=== PATIENT | male | born 1950 | race Asian ===

== ENCOUNTER 2018-12-04 19:04 | Inpatient (IN) | payer OTHER, MEDICARE ==
[~2018-12-04] VITALS: Ht 177.8 cm; Wt 78.9 kg
[2018-12-04] MEDS ORDERED: SODIUM CHLORIDE FLUSH 10ML SYR IVF ONE (19:30)
[2018-12-04] MEDS ORDERED: ACETAMINOPHEN 500 MG TABLET PO ONE (19:30)
[2018-12-04] MEDS ORDERED: IBUPROFEN 200 MG TABLET ONE (19:31)
[2018-12-04 19:43] LABS: BASOPHILS # (AUTO) 0.23 x10^3/uL (0-0.1); BASOPHILS % (AUTO) 1 % (0-1); EOSINOPHILS # (AUTO) 0.05 x10^3/uL (0-0.4); EOSINOPHILS % (AUTO) 0 % (1-7); LYMPHOCYTES # (AUTO) 1.22 x10^3/uL (1-3.4); LYMPHOCYTES % (AUTO) 8 % (22-44); MD NO; MEAN CORPUSCULAR HEMOGLOBIN 30.7 pg (27.5-34.5); MEAN CORPUSCULAR HGB CONC 34.7 g/dL (33.2-36.2); MEAN CORPUSCULAR VOLUME 88.5 fL (81-97); MEAN PLATELET VOLUME 7.5 fL (7.4-10.4); MONOCYTES # (AUTO) 1.01 x10^3/uL (0.2-0.8); MONOCYTES % (AUTO) 6 % (2-9); NEUTROPHILS # (AUTO) 13.31 x10^3/uL (1.8-6.8); NEUTROPHILS % (AUTO) 84 % (42-75); PLATELET COUNT 377 x10^3/uL (130-400); RED BLOOD COUNT 4.63 x10^6/uL (4.38-5.82); RED CELL DISTRIBUTION WIDTH 13.2 % (9.4-14.8)
--- NOTE | 2018-12-04 19:48 | NUR ---
THIS PT ARRIVES FROM HOME AFTER BEING ILL FOR 2 WEEKS. PT REPORTS THAT HE HAS HAD PRODUCTIVE COUGH AND FEVERS AT HOME. PT REPORTS THAT HE HAS CP WITH COUGH. PT ON ARRIVAL IS DIAPHORETIC WITH CONGESTION. PT REPORTS NO N/V/D AT THIS TIME OR BLACK STOOLS. PT CONNECTED TO ALL MONITORS AND CALL LIGHT IN REACH. PT FOUND TO BE HYPOXIC AND NEED O2, 2LNC GIVEN TO PT AT THIS TIME.
[2018-12-04 19:49] LABS: ALANINE AMINOTRANSFERASE 123 U/L (12-78); ANION GAP 8 mmol/L (5-15); CALCIUM 9.5 mg/dL (8.5-10.1); CHLORIDE 102 mmol/L (98-107)
[2018-12-04 19:54] LABS: ALKALINE PHOSPHATASE 217 U/L (45-117); BILIRUBIN,TOTAL 0.7 mg/dL (0.2-1.0); CREATININE 0.91 mg/dL (0.7-1.3); TOTAL PROTEIN 8.2 g/dL (6.4-8.2); TROPONIN I < 0.015 ng/mL (0.000-0.045)
[2018-12-04 20:00] LABS: RAPID INFLUENZA A Negative (Negative); RAPID INFLUENZA B Negative (Negative)
[2018-12-04] MEDS ORDERED: IBUPROFEN 200 MG TABLET PO ONE (20:00)
[2018-12-04] MEDS ORDERED: ALBUTEROL/IPRATROPIUM 2.5MG/0.5MG, 3 ML NPPB ONE (20:30)
[2018-12-04] MEDS ORDERED: SODIUM CHLORIDE 0.9% 1,000ML IVBOLUS ONE (20:30)
--- NOTE | 2018-12-04 20:35 | NUR ---
PT FAILED ROOM AIR CHALLENGE, PT IN 79% ON ROOM AIR.
[2018-12-04] MEDS ORDERED: CEFTRIAXONE PMX 1GM/50ML 50 ML IVPB ONE (21:30)
[2018-12-04] MEDS ORDERED: SODIUM CHLORIDE 0.9% 1,000 ML IV ONE (21:31)
[2018-12-04] MEDS ORDERED: CEFTRIAXONE PMX 1GM/50ML 50 ML ONE (21:41)
--- NOTE | 2018-12-04 21:49 | NUR ---
PT STARTED ON ABX AND PIV MAINTENCE STARTED.
[2018-12-04] MEDS: SODIUM CHLORIDE 0.9% 1,000 ML IV SCH (21:55)
[2018-12-04] MEDS ORDERED: GUAIFENESIN/DM 200-20MG, 10ML UDC PO PRN (22:00)
[2018-12-04] MEDS ORDERED: POLYETHYLENE GLYCOL 17 GM PACKET PO PRN (22:00)
[2018-12-04] MEDS ORDERED: SODIUM CHLORIDE FLUSH 10ML SYR IVF PRN (22:00)
[2018-12-04] MEDS ORDERED: CEFTRIAXONE PMX 1GM/50ML 50 ML IV SCH (22:00)
[2018-12-04] MEDS ORDERED: BISACODYL 10 MG SUPP PR PRN (22:00)
[2018-12-04] MEDS ORDERED: ONDANSETRON ODT 4 MG PO PRN (22:00)
--- NOTE | 2018-12-04 22:04 | NUR ---
EPORT TO OFE ARRIAGA.
[2018-12-04 22:30] LABS: HEMOGLOBIN A1C 10.2 % (4.2-6.3)
[2018-12-04 22:34] VITALS: BP 109/69
[2018-12-04 22:36] VITALS: BP 109/69
[2018-12-04] MEDS: HEPARIN 5,000 UNITS/ML, 1ML SQ SCH (23:00)
[2018-12-04] MEDS: DOXYCYCLINE 100 MG in DEXTROSE 5% 250 ML IV SCH (23:26)
[2018-12-04] MEDS ORDERED: ALBUTEROL SULFATE 2.5 MG/3 ML NPPB PRN (23:30)
[2018-12-05 01:43] VITALS: BP 112/66
[2018-12-05] MEDS: SODIUM CHLORIDE 0.9% 1,000 ML IV SCH ×3 (05:25→23:22)
[2018-12-05] MEDS: HEPARIN 5,000 UNITS/ML, 1ML SQ SCH ×3 (05:31→21:05)
[2018-12-05 06:46] LABS: BASOPHILS # (AUTO) 0.08 x10^3/uL (0-0.1); BASOPHILS % (AUTO) 1 % (0-1); EOSINOPHILS # (AUTO) 0.18 x10^3/uL (0-0.4); EOSINOPHILS % (AUTO) 1 % (1-7); LYMPHOCYTES # (AUTO) 1.14 x10^3/uL (1-3.4); LYMPHOCYTES % (AUTO) 9 % (22-44); MD NO; MEAN CORPUSCULAR HEMOGLOBIN 30.7 pg (27.5-34.5); MEAN CORPUSCULAR HGB CONC 34.2 g/dL (33.2-36.2); MEAN CORPUSCULAR VOLUME 89.9 fL (81-97); MEAN PLATELET VOLUME 7.3 fL (7.4-10.4); MONOCYTES # (AUTO) 0.75 x10^3/uL (0.2-0.8); MONOCYTES % (AUTO) 6 % (2-9); NEUTROPHILS # (AUTO) 11.14 x10^3/uL (1.8-6.8); NEUTROPHILS % (AUTO) 84 % (42-75); PLATELET COUNT 342 x10^3/uL (130-400); RED BLOOD COUNT 4.18 x10^6/uL (4.38-5.82); RED CELL DISTRIBUTION WIDTH 13.4 % (9.4-14.8)
[2018-12-05 06:57] LABS: ALBUMIN 2.4 g/dL (3.4-5.0); ANION GAP 6 mmol/L (5-15); CALCIUM 8.4 mg/dL (8.5-10.1); CHLORIDE 108 mmol/L (98-107)
[2018-12-05 07:01] LABS: ALANINE AMINOTRANSFERASE 89 U/L (12-78); ALKALINE PHOSPHATASE 177 U/L (45-117); BILIRUBIN,TOTAL 0.5 mg/dL (0.2-1.0); CREATININE 0.66 mg/dL (0.7-1.3); TOTAL PROTEIN 7.1 g/dL (6.4-8.2)
[2018-12-05 08:00] VITALS: BP 115/70
[2018-12-05] MEDS: SENNA/DOCUSATE TABLET PO SCH (09:00)
[2018-12-05] MEDS: INSULIN LISPRO 100 UNITS/ML, PEN SQ-INSULIN SCH ×4 (09:29→21:04)
[2018-12-05] MEDS: metFORMIN 500 MG TABLET PO SCH ×2 (09:29→17:24)
[2018-12-05] MEDS: DOXYCYCLINE 100 MG in DEXTROSE 5% 250 ML IV SCH ×2 (09:30→22:07)
[2018-12-05] MEDS ORDERED: VANCOMYCIN PER PHARMACY MC PRN (13:00)
[2018-12-05] MEDS ORDERED: PHARMACOKINETIC CONSULTATION MC ONE (13:30)
[2018-12-05] MEDS ORDERED: PHARMACOKINETIC MONITORING MC PRN (13:30)
[2018-12-05 14:00] VITALS: BP 120/75
[2018-12-05] MEDS: VANCOMYCIN 1,500 MG in SODIUM CHLORIDE 0.9% 250 ML IV SCH (14:52)
[2018-12-05] MEDS: PIPERACILLIN/TAZO/PMX 4.5GM 100 ML IV SCH ×2 (17:21→23:22)
[2018-12-05 20:35] VITALS: BP 113/68
[2018-12-06] MEDS ORDERED: METF10007 PO (02:00)
[2018-12-06] MEDS ORDERED: ATOR-2 PO (02:04)
[2018-12-06 02:57] VITALS: BP 126/80
[2018-12-06] MEDS: PIPERACILLIN/TAZO/PMX 4.5GM 100 ML IV SCH ×4 (04:57→23:48)
[2018-12-06] MEDS: ACETAMINOPHEN 325 MG TABLET PO PRN (04:57)
[2018-12-06] MEDS: HEPARIN 5,000 UNITS/ML, 1ML SQ SCH ×3 (06:18→23:49)
[2018-12-06 06:24] VITALS: BP 129/80
[2018-12-06 07:04] LABS: BASOPHILS # (AUTO) 0.06 x10^3/uL (0-0.1); BASOPHILS % (AUTO) 1 % (0-1); EOSINOPHILS # (AUTO) 0.37 x10^3/uL (0-0.4); EOSINOPHILS % (AUTO) 3 % (1-7); LYMPHOCYTES # (AUTO) 1.35 x10^3/uL (1-3.4); LYMPHOCYTES % (AUTO) 12 % (22-44); MD NO; MEAN CORPUSCULAR HEMOGLOBIN 30.7 pg (27.5-34.5); MEAN CORPUSCULAR HGB CONC 34.2 g/dL (33.2-36.2); MEAN CORPUSCULAR VOLUME 89.7 fL (81-97); MEAN PLATELET VOLUME 7.3 fL (7.4-10.4); MONOCYTES # (AUTO) 0.59 x10^3/uL (0.2-0.8); MONOCYTES % (AUTO) 5 % (2-9); NEUTROPHILS # (AUTO) 9.11 x10^3/uL (1.8-6.8); NEUTROPHILS % (AUTO) 79 % (42-75); PLATELET COUNT 369 x10^3/uL (130-400); RED BLOOD COUNT 4.32 x10^6/uL (4.38-5.82); RED CELL DISTRIBUTION WIDTH 13.4 % (9.4-14.8)
[2018-12-06 07:14] LABS: ALBUMIN 2.5 g/dL (3.4-5.0); ANION GAP 7 mmol/L (5-15); CALCIUM 8.6 mg/dL (8.5-10.1); CHLORIDE 107 mmol/L (98-107)
[2018-12-06 07:20] LABS: ALANINE AMINOTRANSFERASE 77 U/L (12-78); ALKALINE PHOSPHATASE 191 U/L (45-117); BILIRUBIN,TOTAL 0.8 mg/dL (0.2-1.0); CREATININE 0.81 mg/dL (0.7-1.3); TOTAL PROTEIN 7.3 g/dL (6.4-8.2)
[2018-12-06] MEDS: INSULIN LISPRO 100 UNITS/ML, PEN SQ-INSULIN SCH ×4 (08:03→21:51)
[2018-12-06] MEDS: metFORMIN 500 MG TABLET PO SCH ×2 (08:03→17:05)
[2018-12-06] MEDS: SENNA/DOCUSATE TABLET PO SCH (09:40)
[2018-12-06] MEDS: SODIUM CHLORIDE 0.9% 1,000 ML IV SCH ×2 (09:40→17:05)
[2018-12-06] MEDS: DOXYCYCLINE 100 MG in DEXTROSE 5% 250 ML IV SCH ×2 (09:40→21:44)
[2018-12-06 13:51] VITALS: BP 115/72
[2018-12-06] MEDS: VANCOMYCIN 1,500 MG in SODIUM CHLORIDE 0.9% 250 ML IV SCH (15:36)
[2018-12-06 19:41] VITALS: BP 112/68
[2018-12-07 02:38] VITALS: BP 130/79
[2018-12-07] MEDS: SODIUM CHLORIDE 0.9% 1,000 ML IV SCH ×2 (03:43→11:00)
[2018-12-07] MEDS: PIPERACILLIN/TAZO/PMX 4.5GM 100 ML IV SCH ×3 (06:31→17:22)
[2018-12-07 06:43] LABS: BASOPHILS # (AUTO) 0.05 x10^3/uL (0-0.1); BASOPHILS % (AUTO) 1 % (0-1); EOSINOPHILS % (AUTO) 5 % (1-7); LYMPHOCYTES # (AUTO) 1.56 x10^3/uL (1-3.4); LYMPHOCYTES % (AUTO) 15 % (22-44); MD NO; MEAN CORPUSCULAR HEMOGLOBIN 30.8 pg (27.5-34.5); MEAN CORPUSCULAR VOLUME 90.7 fL (81-97); MEAN PLATELET VOLUME 7.3 fL (7.4-10.4); MONOCYTES # (AUTO) 0.48 x10^3/uL (0.2-0.8); MONOCYTES % (AUTO) 5 % (2-9); NEUTROPHILS # (AUTO) 7.81 x10^3/uL (1.8-6.8); NEUTROPHILS % (AUTO) 75 % (42-75); PLATELET COUNT 429 x10^3/uL (130-400); RED BLOOD COUNT 4.25 x10^6/uL (4.38-5.82); RED CELL DISTRIBUTION WIDTH 13.3 % (9.4-14.8)
[2018-12-07] MEDS: INSULIN LISPRO 100 UNITS/ML, PEN SQ-INSULIN SCH ×4 (07:00→21:45)
[2018-12-07] MEDS: metFORMIN 500 MG TABLET PO SCH ×2 (08:00→17:21)
[2018-12-07] MEDS: SENNA/DOCUSATE TABLET PO SCH (08:43)
[2018-12-07] MEDS: HEPARIN 5,000 UNITS/ML, 1ML SQ SCH ×2 (08:43→17:21)
[2018-12-07 08:49] VITALS: BP 133/84
[2018-12-07 13:41] VITALS: BP 131/82
[2018-12-07 21:06] VITALS: BP 125/79
[2018-12-08] MEDS: PIPERACILLIN/TAZO/PMX 4.5GM 100 ML IV SCH ×4 (00:46→17:38)
[2018-12-08] MEDS: HEPARIN 5,000 UNITS/ML, 1ML SQ SCH ×3 (00:46→16:32)
[2018-12-08] MEDS: SODIUM CHLORIDE 0.9% 1,000 ML IV SCH (00:46)
[2018-12-08 03:03] VITALS: BP 148/80
[2018-12-08 05:56] LABS: BASOPHILS # (AUTO) 0.03 x10^3/uL (0-0.1); BASOPHILS % (AUTO) 0 % (0-1); EOSINOPHILS # (AUTO) 0.31 x10^3/uL (0-0.4); EOSINOPHILS % (AUTO) 3 % (1-7); LYMPHOCYTES # (AUTO) 1.47 x10^3/uL (1-3.4); LYMPHOCYTES % (AUTO) 16 % (22-44); MD NO; MEAN CORPUSCULAR HEMOGLOBIN 30.2 pg (27.5-34.5); MEAN CORPUSCULAR HGB CONC 33.8 g/dL (33.2-36.2); MEAN CORPUSCULAR VOLUME 89.3 fL (81-97); MONOCYTES # (AUTO) 0.49 x10^3/uL (0.2-0.8); MONOCYTES % (AUTO) 5 % (2-9); NEUTROPHILS # (AUTO) 7.07 x10^3/uL (1.8-6.8); NEUTROPHILS % (AUTO) 75 % (42-75); PLATELET COUNT 486 x10^3/uL (130-400); RED BLOOD COUNT 4.19 x10^6/uL (4.38-5.82); RED CELL DISTRIBUTION WIDTH 13.4 % (9.4-14.8)
[2018-12-08] MEDS: INSULIN LISPRO 100 UNITS/ML, PEN SQ-INSULIN SCH ×4 (07:00→20:41)
[2018-12-08] MEDS: metFORMIN 500 MG TABLET PO SCH ×2 (08:05→16:32)
[2018-12-08] MEDS: SENNA/DOCUSATE TABLET PO SCH (08:05)
[2018-12-08] MEDS: GUAIFENESIN 200 MG TABLET PO SCH ×4 (08:10→20:40)
[2018-12-08 08:13] VITALS: BP 137/84
[2018-12-08 13:37] VITALS: BP 121/74
[2018-12-08] MEDS: ACETAMINOPHEN 325 MG TABLET PO PRN (13:43)
[2018-12-08 19:41] VITALS: BP 132/76
[2018-12-09 00:29] VITALS: BP 136/84
[2018-12-09] MEDS: PIPERACILLIN/TAZO/PMX 4.5GM 100 ML IV SCH ×4 (00:37→19:07)
[2018-12-09] MEDS: HEPARIN 5,000 UNITS/ML, 1ML SQ SCH (00:37)
[2018-12-09 05:56] LABS: BASOPHILS # (AUTO) 0.03 x10^3/uL (0-0.1); BASOPHILS % (AUTO) 0 % (0-1); EOSINOPHILS # (AUTO) 0.35 x10^3/uL (0-0.4); EOSINOPHILS % (AUTO) 4 % (1-7); LYMPHOCYTES % (AUTO) 21 % (22-44); MD NO; MEAN CORPUSCULAR HEMOGLOBIN 30.5 pg (27.5-34.5); MEAN CORPUSCULAR HGB CONC 33.6 g/dL (33.2-36.2); MEAN CORPUSCULAR VOLUME 90.8 fL (81-97); MEAN PLATELET VOLUME 6.8 fL (7.4-10.4); MONOCYTES # (AUTO) 0.54 x10^3/uL (0.2-0.8); MONOCYTES % (AUTO) 7 % (2-9); NEUTROPHILS # (AUTO) 5.49 x10^3/uL (1.8-6.8); NEUTROPHILS % (AUTO) 68 % (42-75); PLATELET COUNT 483 x10^3/uL (130-400); RED CELL DISTRIBUTION WIDTH 13.8 % (9.4-14.8)
[2018-12-09 06:14] LABS: CHLORIDE 108 mmol/L (98-107)
[2018-12-09 06:24] LABS: ALANINE AMINOTRANSFERASE 92 U/L (12-78); ALBUMIN 2.6 g/dL (3.4-5.0); ALKALINE PHOSPHATASE 188 U/L (45-117); ANION GAP 7 mmol/L (5-15); BILIRUBIN,TOTAL 0.6 mg/dL (0.2-1.0); CALCIUM 8.6 mg/dL (8.5-10.1); CREATININE 0.69 mg/dL (0.7-1.3); TOTAL PROTEIN 7.1 g/dL (6.4-8.2)
[2018-12-09] MEDS: GUAIFENESIN 200 MG TABLET PO SCH ×4 (06:32→19:59)
[2018-12-09] MEDS: ENOXAPARIN 40 MG/0.4 ML SQ SCH (07:51)
[2018-12-09] MEDS: INSULIN LISPRO 100 UNITS/ML, PEN SQ-INSULIN SCH ×4 (07:52→20:47)
[2018-12-09] MEDS: SENNA/DOCUSATE TABLET PO SCH (07:53)
[2018-12-09] MEDS: metFORMIN 500 MG TABLET PO SCH ×2 (07:53→16:34)
[2018-12-09 08:29] VITALS: BP 121/80
[2018-12-09 14:05] VITALS: BP 121/75
[2018-12-09 18:59] VITALS: BP 132/81
[2018-12-10 00:21] VITALS: BP 139/81
[2018-12-10] MEDS: PIPERACILLIN/TAZO/PMX 4.5GM 100 ML IV SCH ×5 (00:55→23:27)
[2018-12-10] MEDS: GUAIFENESIN 200 MG TABLET PO SCH ×4 (06:00→20:38)
[2018-12-10] MEDS: INSULIN LISPRO 100 UNITS/ML, PEN SQ-INSULIN SCH ×4 (07:00→20:23)
[2018-12-10 08:13] VITALS: BP 109/71
[2018-12-10] MEDS: SENNA/DOCUSATE TABLET PO SCH (09:00)
[2018-12-10] MEDS: metFORMIN 500 MG TABLET PO SCH ×2 (09:03→16:10)
[2018-12-10] MEDS: ENOXAPARIN 40 MG/0.4 ML SQ SCH (09:03)
[2018-12-10 15:07] VITALS: BP 110/71
[2018-12-10 20:36] VITALS: BP 110/76
[2018-12-11 02:10] VITALS: BP 109/72
[2018-12-11] MEDS: PIPERACILLIN/TAZO/PMX 4.5GM 100 ML IV SCH ×4 (05:21→22:43)
[2018-12-11] MEDS: GUAIFENESIN 200 MG TABLET PO SCH ×4 (05:21→20:16)
[2018-12-11 07:37] LABS: BASOPHILS # (AUTO) 0.04 x10^3/uL (0-0.1); BASOPHILS % (AUTO) 1 % (0-1); EOSINOPHILS # (AUTO) 0.26 x10^3/uL (0-0.4); EOSINOPHILS % (AUTO) 4 % (1-7); LYMPHOCYTES # (AUTO) 1.31 x10^3/uL (1-3.4); LYMPHOCYTES % (AUTO) 20 % (22-44); MD NO; MEAN CORPUSCULAR HEMOGLOBIN 30.3 pg (27.5-34.5); MEAN CORPUSCULAR HGB CONC 33.5 g/dL (33.2-36.2); MEAN CORPUSCULAR VOLUME 90.5 fL (81-97); MEAN PLATELET VOLUME 6.6 fL (7.4-10.4); MONOCYTES # (AUTO) 0.39 x10^3/uL (0.2-0.8); MONOCYTES % (AUTO) 6 % (2-9); NEUTROPHILS % (AUTO) 70 % (42-75); PLATELET COUNT 556 x10^3/uL (130-400); RED BLOOD COUNT 4.43 x10^6/uL (4.38-5.82); RED CELL DISTRIBUTION WIDTH 13.6 % (9.4-14.8)
[2018-12-11 07:46] LABS: ALANINE AMINOTRANSFERASE 72 U/L (12-78); ALBUMIN 2.7 g/dL (3.4-5.0); ANION GAP 8 mmol/L (5-15); CALCIUM 8.8 mg/dL (8.5-10.1); CHLORIDE 106 mmol/L (98-107)
[2018-12-11 07:48] LABS: ALKALINE PHOSPHATASE 153 U/L (45-117); BILIRUBIN,TOTAL 0.4 mg/dL (0.2-1.0); TOTAL PROTEIN 7.3 g/dL (6.4-8.2)
[2018-12-11 08:02] VITALS: BP 114/74
[2018-12-11] MEDS: metFORMIN 500 MG TABLET PO SCH ×2 (08:39→16:37)
[2018-12-11] MEDS: SENNA/DOCUSATE TABLET PO SCH (08:39)
[2018-12-11] MEDS: INSULIN LISPRO 100 UNITS/ML, PEN SQ-INSULIN SCH ×4 (08:39→20:16)
[2018-12-11] MEDS: ENOXAPARIN 40 MG/0.4 ML SQ SCH (11:35)
[2018-12-11 14:25] VITALS: BP 100/65
[2018-12-11 20:44] VITALS: BP 120/75
[2018-12-12 01:26] VITALS: BP 123/72
[2018-12-12] MEDS: PIPERACILLIN/TAZO/PMX 4.5GM 100 ML IV SCH ×2 (05:00→11:00)
[2018-12-12] MEDS: GUAIFENESIN 200 MG TABLET PO SCH ×4 (06:28→19:47)
[2018-12-12] MEDS: INSULIN LISPRO 100 UNITS/ML, PEN SQ-INSULIN SCH ×4 (07:00→19:56)
[2018-12-12 07:47] VITALS: BP 105/69
[2018-12-12] MEDS: SENNA/DOCUSATE TABLET PO SCH (09:00)
[2018-12-12] MEDS: metFORMIN 500 MG TABLET PO SCH ×2 (10:34→15:38)
[2018-12-12] MEDS: ENOXAPARIN 40 MG/0.4 ML SQ SCH (10:34)
[2018-12-12 13:48] VITALS: BP 114/71
[2018-12-12] MEDS: metroNIDAZOLE 500 MG TABLET PO SCH ×2 (15:38→23:44)
[2018-12-12] MEDS: CEFDINIR 300 MG CAPSULE PO SCH (15:38)
[2018-12-12 19:53] VITALS: BP 106/70
[2018-12-13 01:21] VITALS: BP 114/70
[2018-12-13] MEDS: GUAIFENESIN 200 MG TABLET PO SCH ×2 (06:10→09:11)
[2018-12-13] MEDS: INSULIN LISPRO 100 UNITS/ML, PEN SQ-INSULIN SCH ×2 (07:00→13:35)
[2018-12-13 07:20] VITALS: BP 115/73
[2018-12-13] MEDS: SENNA/DOCUSATE TABLET PO SCH (09:00)
[2018-12-13] MEDS: metroNIDAZOLE 500 MG TABLET PO SCH (09:11)
[2018-12-13] MEDS: CEFDINIR 300 MG CAPSULE PO SCH (09:11)
[2018-12-13] MEDS: metFORMIN 500 MG TABLET PO SCH (09:11)
[2018-12-13] MEDS: ENOXAPARIN 40 MG/0.4 ML SQ SCH (09:11)
[2018-12-13] MEDS ORDERED: METR500T PO (12:51)
[2018-12-13] MEDS ORDERED: GUAI200T3 PO (12:51)
[2018-12-13] MEDS ORDERED: CEFD300C37 PO (12:51)
[2018-12-13] MEDS ORDERED: INSU100I11 SQ-INSULIN (12:51)
== END 2018-12-13 18:00 | disposition home or self-care (01) | DRG 871 ==
LOC: ED 21:53 → EDIP 22:26 → 3NE 22:30
PROVIDERS: ADMIT Family Medicine; ATTEND Family Medicine
DX: A41.9 Sepsis, unspecified organism (principal); J15.6 Pneumonia due to other Gram-negative bacteria; J96.01 Acute respiratory failure with hypoxia; E87.1 Hypo-osmolality and hyponatremia; E44.0 Moderate protein-calorie malnutrition; N40.0 Benign prostatic hyperplasia without lower urinary tract symptoms; K76.0 Fatty (change of) liver, not elsewhere classified; I10 Essential (primary) hypertension; E78.5 Hyperlipidemia, unspecified; E11.65 Type 2 diabetes mellitus with hyperglycemia; B96.1 Klebsiella pneumoniae [K. pneumoniae] as the cause of diseases classified elsewhere; B34.9 Viral infection, unspecified; Z87.891 Personal history of nicotine dependence; Z68.25 Body mass index [BMI] 25.0-25.9, adult
CPT/HCPCS: 36415; 84145; 87400; 99285; J7620; 71045; 71250; 76700; 80053; 80074; 82378; 82962; 83036; 83520; 83605; 84484; 85025; 85651; 86140; 86256; 86430; 86480; 86635; 87015; 87040; 87070; 87116; 87186; 87205; 87206; 87899; 93005; 94640; 96365; G0378; J0696; J1644; J1650; J2543; J3370; J7060; J1815; J7030; J7050